=== PATIENT | female | born 1995 | race Caucasian/White ===

== ENCOUNTER 2020-08-25 16:21 | Emergency (ER) | payer SELFPAY ==
--- NOTE | 2020-08-25 17:12 | NUR ---
PATIENT LEFT WITHOUT BEING TRIAGED. NO FURTHER CARE PROVIDED FOR PATIENT.
== END 2020-08-25 17:12 | disposition left against medical advice (07) ==
LOC: MED 16:21
DX: Z53.21 Procedure and treatment not carried out due to patient leaving prior to being seen by health care provider (principal)

== ENCOUNTER 2020-08-25 18:50 | Emergency (ER) | payer SELFPAY ==
[~2020-08-25] VITALS: Ht 157.5 cm; Wt 63.5 kg
[2020-08-25 19:20] VITALS: BP 140/87
--- NOTE | 2020-08-25 19:23 | NUR ---
TO LOBBY A/W BED AMBULATORY
--- NOTE | 2020-08-25 19:57 | NUR ---
DR FULTON SEEING PT IN PENDING SALE TO [facility]
--- NOTE | 2020-08-25 20:14 | NUR ---
LAB AT BEDSIDE
[2020-08-25 20:51] LABS: BASOPHILS % (AUTO) 0.2 % (0.0-2.0); EOSINOPHILS % (AUTO) 0.6 % (0.0-4.0); HEMATOCRIT 41.1 % (36-48); HEMOGLOBIN 14.1 g/dL (12.0-16.0); LYMPHOCYTES % (AUTO) 23.9 % (20.5-51.1); MEAN CORPUSCULAR HEMOGLOBIN 31 pg (27-31); MEAN CORPUSCULAR HGB CONC 34 g/dL (33-37); MEAN CORPUSCULAR VOLUME 91.1 fL (80-94); MONOCYTES # (AUTO) 0.5 K/uL (0.8-1.0); MONOCYTES % (AUTO) 6.3 % (1.7-9.3); NEUTROPHILS # (AUTO) 5.8 K/uL (1.8-7.7); PLATELET COUNT (AUTO) 270 K/uL (140-450); RED BLOOD CELL COUNT(AUTO) 4.51 MIL/uL (4.20-5.40); RED CELL DISTRIBUTION WIDTH 13.2 % (11.6-13.7); WHITE BLOOD COUNT (AUTO) 8.3 K/uL (4.8-10.8)
[2020-08-25 21:09] VITALS: BP 140/87
--- NOTE | 2020-08-25 21:10 | NUR ---
Patient discharged with v/s stable. Written and verbal after care instructions given and explained. Patient alert, oriented and verbalized understanding of instructions. Ambulatory with steady gait. All questions addressed prior to discharge. ID band removed. Patient advised to follow up with PMD. Rx of MUPIROCIN AND KEFLEX given. Patient educated on indication of medication including possible reaction and side effects. Opportunity to ask questions provided and answered.
[2020-08-25 21:33] LABS: ALBUMIN 4.3 g/dL (3.4-5.0); ANION GAP 11.4 (8-16); CREATININE 0.8 mg/dL (0.6-1.3); POTASSIUM 3.4 mmol/L (3.5-5.1); THYROID STIMULATING HORMONE 0.55 uIU/mL (0.34-3.74); TOTAL BILIRUBIN 0.5 mg/dL (0.0-1.0)
== END 2020-08-25 21:10 | disposition home or self-care (01) ==
LOC: MED 18:50
DX: L73.9 Follicular disorder, unspecified (principal); Z11.4 Encounter for screening for human immunodeficiency virus [HIV]
CPT/HCPCS: 36415; 80053; 84443; 85025; 99283